=== PATIENT | male | born 1970 | race Caucasian/White ===

== ENCOUNTER 2017-06-27 14:59 | Outpatient (RCR) | payer BC, SELFPAY ==
--- NOTE | 2017-06-27 16:14 | HP.PTEVAL_ITS ---
Patient's Visit Information ADALI CATES is a 46 year old M referred to Physical Therapy by Dionte Venegas with a diagnosis of LUMBAGO WITH SCIATICA. Date of Evaluation: 06/27/17 Physical Therapist: Yesenia Langley - Visit Plan Frequency: 2-3x /Week Duration: 4-6 Weeks Plan: POSTURE CORRECTION/STRENGTHENING, INSTRUCTION IN APPROPRIATE BODY MECHANICS AND ACTIVITY MODIFICATIONS. DLS STARTING WITH A NEUTRAL SPINE PROGRESSING ROM TOLERATED. KAR LE ROM, STRETCHING AND STRENGTHENING. HEP INSTRUCTION. 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 CAN GET HELP AT WORK NEEDED RIGHT NOW BUT NOT TECHNICALLY ON LIGHT DUTY. WORK INVOLVES A LOT OF LEANING INTO A MACHINE BUT NOT A LOT OF HEAVY LIFTING. Disability: NO. Present symptoms: LEFT LOW BACK AND LEFT THIGH. NO NUMBNESS OR TINGLING. Present since: ABOUT 7 WEEKS AGO. Pain Scale: WORST 10/10, LEAST 2/10. Currently: 4 /10. Commenced as a result of: BENDING WHILE HELPING SOMEONE WORK ON THEIR CAR. WAS NOT LIFTING AT THE TIME. Symptoms at onset: LEFT LOW BACK. Worse: SITTING?, LEANING FORWARD, TWISING, LIFTING, SOMETIMES WALKING. Better: LIFTING SELF UP ON A COUNTER. SOMETIMES IT POPS AT THE BASE OF HIS SPINE AND IT FEELS BETTER. CRACKING BACK BY LYING ON BED AND TWISTING LIKE A CHIROPRACTOR WOULD DO. PREDNISONE, PERCOCET, GABAPENTEN HELPED BUT ONLY HAS GABAPENTEN LEFT. Disturbed sleep: NO. Previous history/Previous treatment: CHRONIC LOW BACK PAIN FOR ABOUT 25 YEARS. CHIROPRACTOR. MASSAGE THERAPY. NO PT. NO MARAL. NO SURGERY. FLARE UP JUL 2016 POSSIBLY DUE TO COMPENSATING FOR RIGHT KNEE. HAS HAD ABOUT 4 FLARE UPS SINCE JUL. THIS IS THE WORST ONE. COULD BARELY WALK ABOUT 7 WEEKS AGO. Coughing/sneezing/straining: NEGATIVE. Gait: SOMOETIMES CAUSES DECREASED STRIDE ON THE LEFT. Difficulty initiating urinatin: NO. Accidents: RIGHT KNEE INJURY YEARS AGO - 4 SURGERIES ON THAT KNEE WITH MOST RECENT MAR 2016. Unexplained weight loss: NO. Imaging: X-RAY OF LUMBAR RECENTLY SHOWING DDD. NO MRI. PMH: UNREMARKABLE. Recent major surgery: 4 RIGHT KNEE SURGERIES. RIGHT TKR NOW. OTHER: USES A BACK BRACE AT WORK NEEDED. - Objective Sitting Posture: POOR. Standing Posture: FAIR. Lordosis: REDUCED. Lateral shift: NO. Relevant shift: N/A. Active Correction of posture: WORSE. Other Observations: INDEP GAIT AND INDEP SIT TO STAND. Motor deficit: KAR LE STRENGTH IS 5/5 WITH MMT. Sensory deficit: KAR LE LIGHT TOUCH SENSATION IS INTACT AND SYMMETRICAL. ROM deficit: KAR LE ROM WFL BUT RIGHT KNEE FUNCTION LIMITED DUE TO TKR. Reflexes: LEFT QUAD AND KAR ACHILLES DTR'S 2/2. Dural Signs: NEGATIVE RIGHT AND POSITIVE LLE. Lumbar mvmt loss: flex - MIN. ext - GERALDO. R SG -MIN. L SG - GERALDO. Core strength: POOR. Palpation: NO ACUTE PALPABLE TENDERNESS. - Goals Goal 1:: DECREASE C/O BACK AND LE SX'S Goal Time Frame: 4-6 Weeks Goal 2:: IMPROVE STANDING, WALKING, REACHING, BENDING, LIFTING, SITTING, AND WORK FUNCTION Goal Time Frame: 4-6 Weeks Goal 3:: INSTRUCT IN PROPHYLAXIS Goal Time Frame: 4-6 Weeks - Rehabilitation Potential Rehabilitation Potential: Good - Anticipated Interventions Patient/Client Instruction: Educate patient on: Condition, Plan of Care, Risk Factors, Benefits of Fitness Program For the Purpose of:: To improve self management Therapeutic Exercise to Include: Strength training, Body mechanics, Postural training, Flexibilty training, Dynamic Lumbar Stabilization For the Purpose of:: To improve ability of physical actions for home/community/ work/leisure Cryotherapy (ice pack, ice massage): Yes Thermo therapy (hot pack): Yes Ultrasound (thermal/non thermal): Yes For the Purpose of:: To decrease pain, To decrease swelling/inflammation Thank you for the opportunity to evaluate your patient. For Medicare and Medicare HMO plans, please review the plan of care and approve it. It will need to be FAXED BACK to us at [phone] for Medicare purposes. Please let me know if there are questions or concerns regarding this plan of care. Physician Signature: Date:
== END 2017-06-27 15:30 | disposition home or self-care (01) ==
LOC: PT 14:59
PROVIDERS: Family Provider Family Medicine; PCP Family Medicine; Visit Provider Family Medicine
DX: M54.40 Lumbago with sciatica, unspecified side (principal)
CPT/HCPCS: 97162; 97530

== ENCOUNTER → 2017-12-19 14:35 | Outpatient (CLI) | payer BC, SELFPAY ==
--- NOTE | 2017-12-19 14:35 | DT_ITS ---
This patient was seen during an EMR downtime December 17, 2017 - December 24, 2017. This patient may have a combination of paper and electronic documentation or all paper documentation. All documentation is viewable within the e-chart portion of [facility] for each patient visit.
[2017-12-23 15:38] LABS: Anion Gap 8 (5-15); BUN 14 mg/dL (7-18); BUN/Creat Ratio 13.6 RATIO (10-20); Calcium,Total 8.9 mg/dL (8.5-10.1); Chloride 103 mmol/L (98-107); Creatinine, Serum 1.03 mg/dL (0.70-1.30); EST Glomerular Filtration Rate 83 mL/min (>60); Est Glom Filt Rate - Afr Amer 101 mL/min (>60); Glucose 77 mg/dL (74-106); Potassium 3.8 mmol/L (3.5-5.1); Sodium Level 138 mmol/L (136-145); Thyroid Stim Hormone (TSH) 2.14 uIU/mL (0.358-3.74)
[2017-12-23 15:39] LABS: T4 Free Direct 1.18 ng/dL (0.76-1.46)
== END ==
PROVIDERS: Family Provider Family Medicine; PCP Family Medicine; Visit Provider Family Medicine
DX: E03.9 Hypothyroidism, unspecified (principal); E66.9 Obesity, unspecified
CPT/HCPCS: 36415; 80048; 84439; 84443

== ENCOUNTER → 2017-12-24 08:24 | Outpatient (CLI) | payer BC, SELFPAY ==
--- NOTE | 2017-12-24 08:24 | DT_ITS ---
This patient was seen during an EMR downtime December 17, 2017 - December 24, 2017. This patient may have a combination of paper and electronic documentation or all paper documentation. All documentation is viewable within the e-chart portion of [facility] for each patient visit.
[2017-12-24 12:54] LABS: Cholesterol 168 mg/dL (200); High Density Lipoprotein 45 mg/dL; Triglycerides 127 mg/dL; Very Low Density Lipoprotein 25 mg/dL (5-40)
== END ==
PROVIDERS: Family Provider Family Medicine; PCP Family Medicine; Visit Provider Family Medicine
DX: E03.9 Hypothyroidism, unspecified (principal); E66.9 Obesity, unspecified
CPT/HCPCS: 36415; 80061

== ENCOUNTER → 2018-08-15 15:11 | Outpatient (CLI) | payer BC, SELFPAY ==
[2017-06-05 09:51] VITALS: BMI 31.1
[2018-08-15 17:33] LABS: Hematocrit 43.2 % (40-54); Hemoglobin 14.5 g/dl (13.0-16.5); Mean Corp Hgb Conc 33.6 g/gl (32-36); Mean Corpuscular Hgb 30.7 pg (27.0-32.0); Mean Corpuscular Volume 91.3 fL (80-94); Mean Platelet Vol. 11.3 fl (6.2-12.0); Platelet Count 182 K/mm3 (150-450); RBC Distribution Width CV 12.9 % (11.6-14.6); RBC Distribution Width SD 42.5 fl (35.1-43.9); Red Blood Count 4.73 M/mm3 (4.6-6.2); White Blood Count 6.4 K/mm3 (4.4-11.0)
[2018-08-15 17:35] LABS: Scan Indicated on CBC? Y/N NO
[2018-08-15 18:11] LABS: Anion Gap 9 (5-15); BUN 15 mg/dL (7-18); BUN/Creat Ratio 13.6 RATIO (10-20); Calcium,Total 8.6 mg/dL (8.5-10.1); Chloride 104 mmol/L (98-107); EST Glomerular Filtration Rate 77 mL/min (>60); Est Glom Filt Rate - Afr Amer 93 mL/min (>60); Glucose 86 mg/dL (74-106); Sodium Level 140 mmol/L (136-145); T4 Free Direct 1.07 ng/dL (0.76-1.46); Thyroid Stim Hormone (TSH) 2.12 uIU/mL (0.358-3.74)
== END ==
PROVIDERS: Family Provider Family Medicine; PCP Family Medicine; Visit Provider Family Medicine
DX: E03.9 Hypothyroidism, unspecified (principal); F32.9 Major depressive disorder, single episode, unspecified; Z13.21 Encounter for screening for nutritional disorder
CPT/HCPCS: 36415; 80048; 82306; 84439; 84443; 85027

== ENCOUNTER 2018-09-23 05:53 | Day surgery (SDC) | payer BC, SELFPAY ==
--- NOTE | 2018-09-20 14:24 | PCM.HP.BLA ---
History and Physical Date of Admission: 09/23/18 HISTORY AND PHYSICAL ? Baron Roque 1970 ? ? REFERRING PHYSICIAN:???Dr. Gimenez ? CHIEF COMPLAINT: ??Consult (Consult Anal warts) ? HPI: The patient is a 47 year old male with a complaint of?penile and anal condyloma. ?The patient has a past known history of penile condyloma. ?He had these excised approximately 3 years previously. ?He now notes further reaccumulation of both penile and anal condyloma. ?He was seen by Dr. Jason Gimenez?was planning to perform excision of penile condyloma. ?He would like to schedule a combined procedure psych address his perianal condylomatous same setting. ? Patient Notes a history of multiple sexual partners over his lifetime. ?He denies anal sex. ?He notes a history of oral sex. ?He notes no oropharyngeal abnormalities. ?He does not know if his condylomata were serotyped ?for HPV in the past. ? ? The patient is being seen by me today at the request of ?for my opinion and advice regarding anal condyloma.? ? PAST?MEDICAL?HISTORY PAST MEDICAL HISTORY Diagnosis Date ? Hypertension ? ? Hypothyroid ? ? ? PAST?SURGICAL?HISTORY PAST SURGICAL HISTORY Procedure Laterality Date ? KNEE SCOPE,DIAGNOSTIC ? 11/21/2011 ? Arthroscopy, knee ? PAST SURGICAL HISTORY OF ? ? ? wisdom teeth removal ? TOTAL KNEE REPLACEMENT Right 03/2016 ? ? CURRENT?MEDICATIONS ? Current Outpatient Prescriptions: escitalopram oxalate (LEXAPRO) 10 mg tablet ? sildenafil (REVATIO) 20 mg tablet take 1 to 2 tablets by mouth 1 HOUR BEFORE INTERCOURSE Magnesium Oxide 500 mg cap Take by mouth. cholecalciferol (VITAMIN D-3) 5,000 unit tab Take 5,000 Units by mouth once daily. Ascorbic Acid (VITAMIN C) 1,000 mg TbER Take ?by mouth. OTC NUTRITIONAL SUPPLEMENT Take ?by mouth. Vitamin B daily levothyroxine (SYNTHROID) 50 mcg ORAL tablet Take 88 mcg by mouth once daily. Take on empty stomach. For Thyroid. cyclobenzaprine (FLEXERIL) 10 mg ORAL tablet Take 1 tablet by mouth every 8 hours as needed for Muscle Spasm. traMADOL 50 mg tablet Take 1-2 tablets by mouth every 6 hours as needed. (Patient not taking: Reported on 02/07/2017) ? No current facility-administered medications for this visit.? ? ALLERGIES:?Patient has no known allergies. ? PERSONAL HISTORY:? SOCIAL?HISTORY Social History ??Marital status: Single ?Spouse name: ?Years of education: ?Number of children: ? Social History Main Topics ??Smoking status: Never Smoker ?Smokeless tobacco: Never Used ?Alcohol use: Yes ?Comment: 4-5 beers a day ??Drug use: No ? FAMILY HISTORY:? FAMILY?HISTORY No family history on file. ? REVIEW OF SYMPTOMS: ??The review of systems data was entered by the nurse and reviewed by me ? Nursing Notes: Ever Medina LPN ?08/27/2018 ?4:36 PM ?Signed REVIEW OF SYSTEMS: ?General:???The patient denies fatigue, denies weight loss, denies weight gain, denies feeling hot, and denies feelings of cold. ?Eyes: ?The patient denies glaucoma, denies eye injury/surgery, does not wear glasses or contacts. ?Ear/Nose/Throat: ?The patient denies allergies, denies hayfever, NOTES ear infections, and denies bloody noses. ?Cardiovascular: ?The patient denies chest pain, denies heart disease, denies high blood pressure,denies cardiac stent, denies prior heart attack, denies irregular heart beat, denies high cholesterol, ?denies poor circulation, denies heart failure, other cardiac issues, denies claudication, denies cold feet, denies peripheral arterial stent. ?Respiratory: ?The patient denies tuberculosis, NOTES pneumonia, denies frequent cough, denies pulmonary embolism, denies shortness of breath, and denies coughing up blood. ?Gastrointestinal: ?The patient denies difficulty swallowing, denies acid reflux, denies ulcers, denies vomiting, denies jaundice/hepatitis, denies gallbladder problems, denies black or tarry stools, denies hemorrhoids, denies bleeding from rectum, denies diverticulitis, denies constipation, NOTES diarrhea, denies loss of stool control, and denies hernias. ?Kidney/Bladder: ?The patient denies kidney stones, denies urine infections, and denies bloody urine. ?Skin: ?The patient denies a history of skin cancer, denies bleeding/changing moles, and denies a history of skin rash. ?Neurologic: ?The patient denies a history of epilepsy/convulsions, denies headaches, denies head/spinal injuries, and denies stroke/TIA. ?Psychiatric: ?The patient denies psychiatric medications, NOTES depression, and denies voices, denies substance abuse. ?Endocrine: ?The patient NOTES thyroid disorders, denies diabetes, and denies hormonal problems. ?Hematologic: ?The patient denies a history of bruising, denies bleeding, and denies anemia, denies blood clots. ?Infections: ?The patient denies a history of measles and mumps, denies rheumatic fever, and NOTES sexually transmitted diseases. ?Musculoskeletal: ?The patient denies back pain/injury, denies back problems, denies sciatica, NOTES knee/foot trouble, NOTES arthritis, or NOTES gout. ? ? When was patient's last Mammogram screening? N/A ? ?Last Colonoscopy: ?N/A ? Ever Medina LPN ? PHYSICAL EXAMINATION: ? General: ?The patient is 47 year old male, well nourished, well hydrated in no acute distress. ?The patient is oriented to time, place, and person. ? VITALS:?Blood pressure 138/84, pulse 71, temperature 36.3 ?C (97.3 ?F), temperature source Temporal Artery, height 190.5 cm (6' 3), weight 113.9 kg (251 lb), SpO2 100 %. ? HEENT: ?Normal cephalic, ataumatic, pupils are equally round, sclera are anicteric, mucous membranes are moist, oropharynx is clear. ?Neck has no masses, asymmetry or lymphadenopathy. ?Thyroid is unremarkable. ? Respiratory: ?Clear to auscultation and percussion. ?Normal respiratory excursion and pattern. ? Cardiac: ?Examination is regular rate and rhythm. ? Abdominal exam: ?Soft, nontender, ?with no palpable masses. ?No hepatosplenomegaly. ?No palpable hernias. ? Rectal exam:?Multiple smaller nodule and area of coalesced nodules consistent with perianal condyloma. ?Anorectal exam deferred ? Extremities: ?no clubbing, cyanosis or edema. ?No adenopathy. ? Other: ? ? LABORATORY VALUES: As Noted ? RADIOLOGIC STUDIES: ?As Noted ? Assessment ? IMPRESSION:?Penile and perianal condyloma ? PLAN:???I plan to perform examination under anesthesia with excision and fulguration of anal condyloma.??The planned surgical procedure was discussed extensively with the patient. The risks, benefits and anticipated outcomes of the procedure, the risks and benefits of the alternatives to the procedure, and the roles and tasks of the personnel to be involved, were discussed with the patient. ?My staff has also explained the procedure in understandable terms and the patient was given the option to take printed material concerning the planned procedure. ?The patient had the opportunity to ask questions concerning the planned procedure. ?The patient freely consents to the planned procedure. ? Anticipated Surgical Procedure/ CPT Code:?Surgical excision of lesions/condyloma - Anus - 62390 ? Anticipated Anesthetic:?General ? Patient weight:??Blood pressure 138/84, pulse 71, temperature 36.3 ?C (97.3 ?F), temperature source Temporal Artery, height 190.5 cm (6' 3), weight 113.9 kg (251 lb), SpO2 100 %.?BMI: ?Body mass index is 31.37 kg/m?. ? Planned antibiotic:?clindamycin 900mg IVPB agricultural produce commission agent to OR ? SCDs needed -?Yes ? Certified Nurse Needed -?No ?? ? Diagnoses:?(A63.0) Anal condyloma ?(primary encounter diagnosis) ? My findings have been communicated to Dr.?Ammy?via shared medical record. ?This note will be forwarded to Dr. Dionte Venegas MD. ? Return to Clinic: The patient is instructed to follow-up with me?1 week post operatively. ? This note was partially generated using [employer] voice recognition system, and there may be some incorrect words, spellings, and punctuation that were not noted in checking the note before saving.? David Ayoub MD
[2018-09-23 06:24] VITALS: BP 134/83; PULSE 65; RESP 16; TEMP 36.6; O2SAT 99; BMI 30.3
--- NOTE | 2018-09-23 07:30 | MISC_PTH ---
PATIENT: ADALI CATES LOC: [facility] [place] U#:[id number] AGE/SX: 47/M ROOM: RE09/23/[address]: Dr. Micah Gimenez MD : 1970 BED: DIS: 09/23/2018 SPEC #: [id number] RECD: 09/23/18 13:47 STATUS: CHRISTINA LILO #: [id number] ASHVIN: 09/23/18 07:[address]: Micah Gimenez DEPT: SURGICAL PATHOLOGY RECD BY: Aliyah Gresham ENTERED: 09/23/18 14:07 SP [facility] O[facility] DR: Dr. Dionte Venegas MD Tissues: Perianal tissue Procedures: Surgery Specimen Level IV HEADER OPERATION: Destruction penile lesions, CO2 laser PRE-OP DIAGNOSIS: Penile condyloma TISSUE SUBMITTED: Perianal condyloma MICROSCOPIC DIAGNOSIS Perianal condyloma, biopsy: Consistent with condyloma. SJ:mauricio 09/23/18 MICROSCOPIC DESCRIPTION Slides are reviewed. GROSS DESCRIPTION Received in fixative is one container labeled with the patient's name and designated perianal condyloma. The specimen consists of three irregular fragments of light crocker soft tissue that in aggregate measure 1.5 x 0.6 x 0.2 cm. The specimen is totally submitted in one cassette. / AM:mauricio 09/23/18 TC:5 CPT: 81505 ADDENDUM ADDENDUM ADDENDUM ADDENDUM ADDENDUM ADDENDUM ADDENDUM ADDENDUM ADDENDUM ADDENDUM 10/21/2018 10:24 ADDENDUM 10/21/2018 10:24 ADDENDUM 10/21/2018 10:24 ADDENDUM 10/21/2018 10:24 ADDENDUM 10/21/2018 10:24 REPORT FROM [facility] TEST: HPV ARI low/high subtypes HPV 6/11 Positive for low risk HPV 6/11 HPV 16/18 Negative for high risk HPV 16/18 HPV 31/33 Negative for high risk HPV 31/33 Please see complete report in e-chart or EMR for further details
[2018-09-23] MEDS: ACETIC ACID 1,000 ML IRRIG.SOLN IR (07:53)
--- NOTE | 2018-09-23 07:57 | PCM.OPRPT ---
Report of Operation Date of Procedure: 09/23/18 Pre-Operative Diagnosis: Penile condylomas Post-Operative Diagnosis: Same multiple Surgery/Procedure Performed:: CO2 laser destruction of multiple penile condyloma is more than 20 Description of Surgical Findings:: 47-year-old male has recurrence of penile condylomas initial condylomas were lasered or destroyed somewhere else he comes back in the office my office for consultation he also has anal condylomas because of this reviewed combined case with general surgery to proceed with my partner first and laser to destroy all the penile condylomas first and then general surgery is going to take care of the anal condylomas. Patient underwent general anesthesia he was placed supine on the table the penis and testicles are prepped and draped in usual sterile fashion I shaved the patient as well. He had multiple condylomas along the shaft of the penis none on the glands some of the scrotum and some in the prepubic fat area. We then used a CO2 laser with a setting of 7 and took about 20 minutes to laser all the visible condylomas to use acetic acid identifies many condylomas as possible at the end of the procedure I had lasered all the condylomas were used suction to suction all the smoke out with a high vacuum suction device. After destroying of the condylomas and the case was turned over to general surgery he was going to proceed with a destruction of the anal condylomas she will follow-up in my office in a few weeks for checkup. Type of Anesthesia:: General - Admit VTE Documentation VTE Present on Admission: No
--- NOTE | 2018-09-23 08:00 | DCINST_ITS ---
Discharge Diet: Light diet - advance as tolerated Discharge Activity: Return to Normal Activity Suture Line Care: Avoid Pulling/Pushing, Avoid Pinching/Bending Allergies/Adverse Reactions: Allergies No Known Allergies Allergy (Verified 09/16/18 13:05) Medications to take at Discharge Ascorbic Acid [Vitamin C] 500 mg PO DAILY 04/03/16 Cholecalciferol (Vitamin D3) [Vitamin D3] 5,000 unit PO DAILY 04/03/16 Cyanocobalamin (Vitamin B-12) [Vitamin B-12] 5,000 mcg PO DAILY 04/03/16 Levothyroxine [Synthroid] 88 mcg PO DAILY 04/03/16 Magnesium 500 mg PO DAILY 04/03/16 Multivitamin 1 tab PO DAILY 04/03/16 Bupropion HCl [Bupropion Xl] 150 mg PO DAILY 09/16/18 Escitalopram Oxalate [Lexapro] 10 mg PO DAILY 09/16/18 Naproxen Sodium [Aleve] 220 mg PO PRN PRN 09/16/18 Primary Care Physician: Jagdish Venegas MD [Primary Care Provider] - Test Results: Test results from this visit will be discussed in further detail at your follow- up appointment, if applicable. Please Follow Up With: Micah Gimenez MD When: in 2 weeks, please call to make an appointment.
[2018-09-23] MEDS: Bupivacaine Mpf 0.5% 30 ML VIAL (08:25)
[2018-09-23 08:34] VITALS: BP 133/84; BP 134/83; PULSE 72; RESP 16; TEMP 36.1; O2SAT 93
--- NOTE | 2018-09-23 08:36 | PCM.OPRPT ---
Report of Operation Date of Procedure: 09/23/18 Pre-Operative Diagnosis: anal and penile condyloma Post-Operative Diagnosis: anal and penile condyloma Surgery/Procedure Performed:: Examination under anesthesia, excision and fulgration of anal condyloma shift production supervisor: None Type of Anesthesia:: General Anesthesiologist: Gregory Jackson ASA2 Specimen's removed: anal condyloma Estimated Blood Loss (mL): 25 Fluids Replaced: 800 Description of Procedure: The patient was brought to the operating suite. Sign in was performed verifying patient, site, procedure, position, and DVT prophylaxis with SCDs. Clindamycin 900mg. performed his portion of the procedure. Following induction of general anesthetic. The patient was positioned in the modified lithotomy The patient?s perineal area was then prepped and draped in the usual fashion. Timeout was performed verifying patient, site, procedure, and position. External examination demonstrated multiple condylomatous nodules at the anal verge and perianal skin. Digital rectal exam demonstrated nodules in the anal canal. Anoscopy was performed which multiple condylomatous nodules. Acetic acid highlighted these nodules. Larger plaques were sent for pathology. The remaining were excised or fulgrated A dressing was applied and mesh pants were used to hold the dressing in place. The patient was extubated and brought to recovery room in stable condition. - Admit VTE Documentation VTE Present on Admission: No VTE Mechan Device Prophylaxis: SCD's VTE Pharm Prophylaxis ordered?: No
[2018-09-23 08:45] VITALS: BP 119/72; BP 134/83; PULSE 69; RESP 18; O2SAT 97
[2018-09-23 09:01] VITALS: BP 122/76; BP 134/83; PULSE 72; RESP 18; TEMP 36.3; O2SAT 94
[2018-09-23 09:30] VITALS: BP 134/83
[2018-09-23 09:42] VITALS: BP 134/83
[2018-10-22 13:18] LABS: Miscellaneous Lab Procedure SEE PATH
== END 2018-09-23 09:43 | disposition home or self-care (01) ==
LOC: SDC 05:55 → AC 05:58
PROVIDERS: Surgery; Family Provider Family Medicine; PCP Family Medicine; Referring Provider Urology; Visit Provider Urology
PROC: (CPT 54065; principal; 2018-09-23 07:20)
PROC: (CPT 46922; 2018-09-23 07:20)
DX: A63.0 Anogenital (venereal) warts (principal); I10 Essential (primary) hypertension; E03.9 Hypothyroidism, unspecified; F32.9 Major depressive disorder, single episode, unspecified; F41.9 Anxiety disorder, unspecified; Z79.899 Other long term (current) drug therapy; Z96.651 Presence of right artificial knee joint
CPT/HCPCS: 46922; 54065; 88305; J7120; J2405

== ENCOUNTER 2019-06-04 05:29 | Day surgery (SDC) | payer BC, SELFPAY ==
--- NOTE | 2019-06-03 19:01 | PCM.HP.BLA ---
History and Physical Date of Admission: 06/04/19 HISTORY AND PHYSICAL ? Baron Roque 1970 ? REFERRING PHYSICIAN: ??MD Marquez ? CHIEF COMPLAINT: ??Post Op ? HPI:Baron is a patient I am following for anal and penile condyloma. ?? ? I performed an examination under anesthesia and excision and fulguration of anal condyloma on September 23, 2018. ??The patient currently notes he had an episode of gastroenteritis and had multiple loose stools which gave him significant perianal pain over the weekend but currently is improving. ?his appetite has been good. ?he denies fever, chills or abdominal pain. ?he does note some improving incisional discomfort. ? The patient's HPV serotypes returned as low risk. ?He now is noticing a few recurrent nodules in his perianal area. ? He is noted recurrent condyloma on his penis. ?He is planning to have penile condyloma excised by Dr. Gimenez ? Baron notes?no history of colon complaints. ? The patient??notes no history of upper GI complaints.?? ? Baron?has not?undergone prior endoscopy. ?He wishes to undergo screening colonoscopy. ? The patient is being seen by me today at the request of Dr.?Dionte Venegas MD?for my opinion and advice regarding follow-up anal condyloma and desire for screening colonoscopy.? ? ? PAST MEDICAL HISTORY PAST MEDICAL HISTORY Diagnosis Date ? Hypertension ? ? Hypothyroid ? PAST SURGICAL HISTORY PAST SURGICAL HISTORY Procedure Laterality Date ? EXAM UNDER ANESTHESIA ? 09/23/2018 ? excision and fulgration of anal condyloma ? KNEE SCOPE,DIAGNOSTIC ? 11/21/2011 ? Arthroscopy, knee ? PAST SURGICAL HISTORY OF ? ? ? wisdom teeth removal ? TOTAL KNEE REPLACEMENT Right 03/2016 ? Current Outpatient Medications: buPROPion XL (WELLBUTRIN XL) 300 mg 24 hr tablet ? escitalopram oxalate (LEXAPRO) 10 mg tablet ? sildenafil (REVATIO) 20 mg tablet take 1 to 2 tablets by mouth 1 HOUR BEFORE INTERCOURSE Magnesium Oxide 500 mg cap Take by mouth. cholecalciferol (VITAMIN D-3) 5,000 unit tab Take 5,000 Units by mouth once daily. traMADOL 50 mg tablet Take 1-2 tablets by mouth every 6 hours as needed. (Patient not taking: Reported on 02/07/2017) Ascorbic Acid (VITAMIN C) 1,000 mg TbER Take ?by mouth. OTC NUTRITIONAL SUPPLEMENT Take ?by mouth. Vitamin B daily levothyroxine (SYNTHROID) 50 mcg ORAL tablet Take 88 mcg by mouth once daily. Take on empty stomach. For Thyroid. cyclobenzaprine (FLEXERIL) 10 mg ORAL tablet Take 1 tablet by mouth every 8 hours as needed for Muscle Spasm. ? No current facility-administered medications for this visit.? ? ALLERGIES:?Patient has no known allergies. ? PERSONAL HISTORY:?Social History ??Socioeconomic History ?Marital status: Single ?Spouse name: Not on file ?Number of children: Not on file ?Years of education: Not on file ?Highest education level: Not on file ??Occupational History ?Not on file ??Social Needs ?Financial resource strain: Not on file ?Food insecurity: ?Worry: Not on file ?Inability: Not on file ?Transportation needs: ?Medical: Not on file ?Non-medical: Not on file ??Tobacco Use ?Smoking status: Never Smoker ?Smokeless tobacco: Never Used ??Substance and Sexual Activity ?Alcohol use: Yes ?Comment: 4-5 beers a day ?Drug use: No ?Sexual activity: Not on file ??Lifestyle ?Physical activity: ?Days per week: Not on file ?Minutes per session: Not on file ?Stress: Not on file ??Relationships ?Social connections: ?Talks on phone: Not on file ?Gets together: Not on file ?Attends hindu service: Not on file ?Active member of club or organization: Not on file ?Attends meetings of clubs or organizations: Not on file ?Relationship status: Not on file ?Intimate partner violence: ?Fear of current or ex partner: Not on file ?Emotionally abused: Not on file ?Physically abused: Not on file ?Forced sexual activity: Not on file ??Other Topics ?Concerns: ?Not on file ??Social History Narrative ?Not on file ?? ? FAMILY HISTORY:? FAMILY HISTORY No family history on file. ? REVIEW OF SYMPTOMS: ??The review of systems data was entered by the nurse and reviewed by me ? There are no exam notes on file for this visit. ? ? PHYSICAL EXAMINATION: ? General: ?The patient is 48 year old male, well nourished, well hydrated in no acute distress. ?The patient is oriented to time, place, and person. ? VITALS:?Blood pressure 150/78, pulse 74, temperature 36.2 ?C (97.2 ?F), temperature source Temporal Artery, resp. rate 14, weight 112.5 kg (248 lb), SpO2 97 %.?Body mass index is 31 kg/m?.? ? HEENT: ?Normal cephalic, ataumatic, pupils are equally round, sclera are anicteric, mucous membranes are moist, oropharynx is clear. ?Neck has no masses, asymmetry or lymphadenopathy. ?Thyroid is unremarkable. ? Respiratory: ?Clear to auscultation and percussion. ?Normal respiratory excursion and pattern. ? Cardiac: ?Examination is regular rate and rhythm. ? Abdominal exam: ?Soft, nontender, ?with no palpable masses. ?No hepatosplenomegaly. ?No palpable hernias. ? Rectal exam:perianal condyloma ? Extremities: ?no clubbing, cyanosis or edema. ?No adenopathy. ? Other: ? LABORATORY VALUES: As Noted ? RADIOLOGIC STUDIES: ?As Noted ? Assessment ? IMPRESSION:?Condyloma, screening colonoscopy ? PLAN: ?I plan to perform lower?endoscopy. ??We discussed the risks and benefits of the planned endoscopy. ?I have informed the patient that complications can occur including failure to complete the endoscopy and perforation. ?The patient had the opportunity to ask questions concerning the planned endoscopy. ?My staff has also explained the procedure to the patient in understandable terms and has given the patient printed material concerning the procedure. ?The patient freely consents to surgery. ? I plan to use golytely bowel preparation for endoscopy ? Anticipated Surgical Procedure/ CPT Code:?Colonoscopy with or without biopsies based on clinical findings,?Surgical excision of lesions/condyloma - Anus - 66688 ? Anticipated Anesthetic:?General ? Patient weight:??Blood pressure 150/78, pulse 74, temperature 36.2 ?C (97.2 ?F), temperature source Temporal Artery, resp. rate 14, weight 112.5 kg (248 lb), SpO2 97 %.?BMI: ?Body mass index is 31 kg/m?. ? Planned antibiotic:?clindamycin 900mg IVPB acute care nurse practitioner to OR ? SCDs needed -?Yes ? Obstetrics Scrub Nurse Needed -?No ? Diagnoses:?(A63.0) Anal condyloma ?(primary encounter diagnosis) (Z12.11) Special screening for malignant neoplasm of colon ? A letter was sent to Dr.?Dionte Venegas MD?indicating the above finding for this patient. ?? Return to Clinic: The patient is instructed to follow-up with me?1 week post operatively. ? David Ayoub MD
--- NOTE | 2019-06-04 05:37 | EKG12_ITS ---
Test Reason : PREOP Blood Pressure : / mmHG Vent. Rate : 065 BPM Atrial Rate : 065 BPM P-R Int : 182 ms QRS Dur : 100 ms QT Int : 396 ms P-R-T Axes : 068 021 036 degrees QTc Int : 411 ms Normal sinus rhythm Normal ECG No previous ECGs available Confirmed by CALLUM BEYER, ALESHA ([id number]), associate entertainment editor DEBRA HARVEY ([id number]) on 06/09/2019 10:17:41 AM Referred By: David Ayoub Confirmed By:ALESHA NOLEN MD
[2019-06-04 05:53] VITALS: BP 135/83; PULSE 64; RESP 16; TEMP 36.6; O2SAT 97; BMI 30.3
[2019-06-04] MEDS: Lactated Ringers 1,000 ML 100 ML IV ×2 (06:10→08:25)
--- NOTE | 2019-06-04 06:30 | COLBX_PTH ---
PATIENT: ADALI CATES LOC: EN U#:[id number] AGE/SX: 48/M ROOM: RE06/04/[address]: Dr. David Ayoub MD : 1970 BED: DIS: 06/04/2019 SPEC #: [id number] RECD: 06/04/19 09:44 STATUS: CHRISTINA REMine #: [id number] ASHVIN: 06/04/19 06:[address]: David Ayoub DEPT: SURGICAL PATHOLOGY RECD BY: Janak Berger ENTERED: 06/04/19 12:20 SP TYPE: COLON BX OTHR DR: MD Dr. Micah Viramontes MD Tissues: Rectum, NOS Procedures: Surgery Specimen Level IV HEADER OPERATION: Colonoscopy (MAC) PRE-OP DIAGNOSIS: Screening TISSUE SUBMITTED: Biopsy of low rectum MICROSCOPIC DIAGNOSIS Biopsy of low rectum: Polypoid fragment of benign colonic mucosa with no significant pathologic change. AM:mauricio 06/05/19 MICROSCOPIC DESCRIPTION Slides are reviewed. GROSS DESCRIPTION Received in fixative is one container labeled with the patient's name and designated rectum. The specimen consists of one irregular fragment of light crocker soft tissue that measures 0.5 x 0.2 x 0.1 cm. The specimen is totally submitted in one cassette. / AM:mauricio 06/04/19 TC:5 CPT: 06657
[2019-06-04] MEDS: Cefazolin 2 GM in 0.9% Normal Saline 100 ML IV (06:50)
[2019-06-04 06:55] LABS: Thyroid Stim Hormone (TSH) 1.71 uIU/mL (0.358-3.74)
--- NOTE | 2019-06-04 07:15 | COLBX_PTH ---
PATIENT: ADALI CATES LOC: EN U#:[id number] AGE/SX: 48/M ROOM: RE06/04/[address]: Dr. David Ayoub MD : 1970 BED: DIS: 06/04/2019 SPEC #: [id number] RECD: 06/04/19 08:33 STATUS: CHRISTINA REMine #: [id number] ASHVIN: 06/04/19 07:[address]: David Ayoub DEPT: SURGICAL PATHOLOGY RECD BY: Janak Berger ENTERED: 06/04/19 12:01 SP TYPE: COLON BX OTHR DR: MD Dr. Micah Viramontes MD Tissues: Anal region Procedures: Surgery Specimen Level IV HEADER OPERATION: Excision anal condyloma fulguration PRE-OP DIAGNOSIS: Anal condyloma, anogenital warts TISSUE SUBMITTED: Anal condyloma MICROSCOPIC DIAGNOSIS Anal condyloma, biopsy: Consistent with fragments of condyloma. AM:mauricio 06/05/19 COMMENT Case has been reviewed in consultation with Dr. Ceron who concurs with the above diagnosis. IDC:SJ MICROSCOPIC DESCRIPTION Slides are reviewed. GROSS DESCRIPTION Received in fixative is one container labeled with the patient's name and designated anal condyloma. The specimen consists of multiple irregular fragments of light crocker soft tissue that in aggregate measure 0.5 x 0.3 x 0.1 cm. The specimen is totally submitted in one cassette. / AM:mauricio 06/04/19 TC:5 CPT: 20323
[2019-06-04] MEDS: Bupivacaine Mpf 0.5% 30 ML VIAL (07:47)
[2019-06-04] MEDS: Dibucaine 30 GM Tube 1 APPLIC (07:48)
--- NOTE | 2019-06-04 08:00 | PCM.OPRPT ---
Report of Operation Date of Procedure: 06/04/19 Pre-Operative Diagnosis: Penile condylomas multiple more than 3 Post-Operative Diagnosis: Same Surgery/Procedure Performed:: Destruction of penile condylomas using CO2 laser Description of Surgical Findings:: 48-year-old male who has multiple condylomatous he is finished with general surgery for the treatment of the anal condylomas I come into the operating room penis was prepped and draped in usual sterile fashion we shaved the penis and scrotum to do a close examination. We then used acetic acid to identify all the condylomas we then used the CO2 laser set on energy of 3 and we lasered the condylomas there was about 5-6 small condylomas in the dorsal aspect of the penis and 3 or 4 small condylomas in the ventral aspect the penis within very close inspection of the rest of the penis and the scrotum and no other condylomas were identified. No specimen was obtained all the condylomas were lasered by the CO2 laser patient tolerated procedure well and is currently being awakened from anesthesia. Type of Anesthesia:: General Drains: none - Admit VTE Documentation VTE Present on Admission: No VTE Mechan Device Prophylaxis: SCD's
--- NOTE | 2019-06-04 08:06 | OP.PCM_ITS ---
Report of Operation Date of Procedure: 06/04/19 Pre-Operative Diagnosis: anal and penile condyloma, need for screening col onoscopy Post-Operative Diagnosis: anal and penile condyloma, need for screening colonoscopy Surgery/Procedure Performed:: colonoscopy with biopsy, excision and fulguration anal condyloma demurrage clerk: None Type of Anesthesia:: General Anesthesiologist: Jamal Julien - ASA2 Specimen's removed: anal condyloma Estimated Blood Loss (mL): 5 Fluids Replaced: 1600 Description of Procedure: The patient was brought to the operating suite. Sign in was performed verifying patient, site, procedure, position, and DVT prophylaxis with SCDs. Clindamycin 900mg was given. Following induction of general anesthetic. The patient was placed in modified lithotomy position. Prior to examination under anesthesia colonoscopy was performed under separate dictation. The p atient?s perineal area was then prepped and draped in the usual fashion. Timeout was performed verifying patient, site, procedure, and position. External examination demonstrated multiple condylomatous nodules at the anal verge and perianal skin. Digital rectal exam demonstrated nodules in the anal canal. Anoscopy was performed which multiple condylomatous nodules. Acetic acid highlighted these nodules. Larger plaques were sent for pathology. The remaining were excised or fulgurated. A dressing was applied and mesh pants were used to hold the dressing in place. The patient was extubated and brought to recovery room in stable condition.
--- NOTE | 2019-06-04 08:12 | DCINST_ITS ---
Discharge Diet: No Restrictions Discharge Activity: Return to Normal Activity, May Not Drive - while taking narcotic pain medications. Additional Activity Instructions:: Do not drive or work with heavy equipment or sign legal documents for 24 hours. Be aware that pain medications may cause nausea. You should typically eat light foods as you take your pain medications. Pain medications may also cause constipation, if you have difficulty with this please discuss with your doctor. dibucaine to external anal area as needed. sitz baths twice a day and after bowel movements Additional Dressing/Incision Instructions:: Leave the operative bandage on for 2 days. If a local anesthetic plug was placed in the anal area, try not to expel for 24-[address] dibucaine ointment on the perianal area as needed. Sitz baths twice daily and after bowel movements. Allergies/Adverse Reactions: Allergies No Known Allergies Allergy (Verified 06/04/19 05:53) Medications to take at Discharge Ascorbic Acid [Vitamin C] 500 mg PO DAILY 04/03/16 Cholecalciferol (Vitamin D3) [Vitamin D3] 5,000 unit PO DAILY 04/03/16 Cyanocobalamin (Vitamin B-12) [Vitamin B-12] 5,000 mcg PO DAILY 04/03/16 Levothyroxine [Synthroid] 88 mcg PO DAILY 04/03/16 Magnesium 500 mg PO DAILY 04/03/16 Multivitamin 1 tab PO DAILY 04/03/16 Bupropion HCl [Bupropion Xl] 300 mg PO DAILY 09/16/18 Escitalopram Oxalate [Lexapro] 10 mg PO DAILY 09/16/18 Naproxen Sodium [Aleve] 220 mg PO PRN PRN 09/16/18 Dibucaine 1 applic TOPICAL PRN PRN #2 tube 06/04/19 Hydrocodone Bitart/Apap 5-325 [[place] 5/325] 1 - 2 tab PO Q6H PRN PRN 5 Days #10 tab 06/04/19 The following prescriptions were given: Dibucaine 1 applic TOPICAL PRN PRN #2 tube PRN Reason: Anal/Rectal Irritations Prescription Printed Hydrocodone Bitart/Apap 5-325 [[place] 5/325] 1 - 2 tab PO Q6H PRN PRN 5 Days #10 tab PRN Reason: Pain Score 1-11/22 Prescription Printed Primary Care Physician: Jagdish Venegas MD [Primary Care Provider] - Test Results: Test results from this visit will be discussed in further detail at your follow- up appointment, if applicable. Please Follow Up With: David Ayoub MD - [phone] When: 1-2 weeks
[2019-06-04 08:13] VITALS: BP 133/85; BP 135/83; PULSE 74; RESP 16; TEMP 36.2; O2SAT 96
[2019-06-04 08:30] VITALS: BP 126/84; BP 135/83; PULSE 72; RESP 16; O2SAT 96
[2019-06-04 08:43] VITALS: BP 133/86; BP 135/83; PULSE 73; RESP 16; TEMP 36.3; O2SAT 96
[2019-06-04] MEDS: HYDROcodone Bitartrate/Apap 5/325 Tablet PO (09:37)
[2019-06-04 10:24] VITALS: BP 135/83; BP 137/88; PULSE 72; RESP 16; TEMP 36.5; O2SAT 99
--- NOTE | 2019-06-04 12:29 | OP.COLON_ITS ---
Patient Name: Baron Roque Procedure Date: 06/04/2019 6:16 AM Date of : 1970 Age: 48 Procedure: Colonoscopy Indications: Screening for colorectal malignant neoplasm Providers: David Ayoub MD Referring MD: David Ayoub MD Medicines: General Anesthesia Patient Profile: This is a 48 year old male. Refer to note in patient chart for documentation of history and physical. Last Colonoscopy: none. The patient's first colonoscopy is today. Complications: No immediate complications. Procedure: Pre-Anesthesia Assessment: - Prior to the procedure, a History and Physical was performed, and patient medications and allergies were reviewed. The patient is competent. The risks and benefits of the procedure and the sedation options and risks were discussed with the patient. All questions were answered and informed consent was obtained. Patient identification and proposed procedure were verified by the physician, the nurse, the anesthesiologist and the financial administrative assistant in the procedure room. Mental Status Examination: alert and oriented. Airway Examination: normal oropharyngeal airway and neck mobility. Respiratory Examination: clear to auscultation. CV Examination: normal. Prophylactic Antibiotics: The patient does not require prophylactic antibiotics. Prior Anticoagulants: The patient has taken no previous anticoagulant or antiplatelet agents. ASA Grade Assessment: II - A patient with mild systemic disease. After reviewing the risks and benefits, the patient was deemed in satisfactory condition to undergo the procedure. The anesthesia plan was to use general anesthesia. Immediately prior to administration of medications, the patient was re-assessed for adequacy to receive sedatives. The heart rate, respiratory rate, oxygen saturations, blood pressure, adequacy of pulmonary ventilation, and response to care were monitored throughout the procedure. The physical status of the patient was re-assessed after the procedure. After I obtained informed consent, the scope was passed under direct vision. Throughout the procedure, the patient's blood pressure, pulse, and oxygen saturations were monitored continuously. The Colonoscope was introduced through the anus and advanced to the cecum, identified by appendiceal orifice and ileocecal valve. The colonoscopy was performed without difficulty. The patient tolerated the procedure well. The quality of the bowel preparation was good. Scope In: 7:02:05 AM Scope Withdrawal Time 0 hours 12 minutes 10 seconds Scope Out: 7:16:45 AM Total Procedure Duration Time 0 hours 14 minutes 40 seconds Findings: The perianal exam findings include anal condyloma. Three small mucosal nodules were found at the anus. Biopsies were taken with a cold forceps for histology. The exam was otherwise normal throughout the examined colon. Impression: - Anal condyloma found on perianal exam. - Mucosal nodule at the anus. Biopsied. Recommendation: - Discharge patient to home. - Resume previous diet. - Continue present medications. - Await pathology results. - Return to my office in 2 weeks. - Repeat colonoscopy in 10 years for screening purposes. Procedure Code(s): --- Professional --- 11338, Colonoscopy, flexible; with biopsy, single or multiple CPT copyright 2017 [employer]. All rights reserved. The codes documented in this report are preliminary and upon photographers' model review may be revised to meet current compliance requirements. David Ayoub MD 06/04/2019 12:28:34 PM This report has been signed electronically. Number of Addenda: 0 Note Initiated On: 06/04/2019 6:16 AM
--- NOTE | 2019-06-10 12:26 | HP.PCM_ITS ---
History of Present Illness Date of Admission: 06/04/19 Chief Complaint: Condylomas The patient is a 48 year old male with multiple condylomas presents for destruction condylomas today Past Medical History Allergies No Known Allergies Allergy (Verified 06/04/19 05:53) Home Medications: Ambulatory Orders Medication Instructions Recorded Ascorbic Acid [Vitamin C] 500 mg PO DAILY 04/03/16 Cholecalciferol (Vitamin D3) 5,000 unit PO DAILY 04/03/16 [Vitamin D3] Cyanocobalamin (Vitamin B-12) 5,000 mcg PO DAILY 04/03/16 [Vitamin B-12] Levothyroxine [Synthroid] 88 mcg PO DAILY 04/03/16 Magnesium 500 mg PO DAILY 04/03/16 Multivitamin 1 tab PO DAILY 04/03/16 Bupropion HCl [Bupropion Xl] 300 mg PO DAILY 09/16/18 Escitalopram Oxalate [Lexapro] 10 mg PO DAILY 09/16/18 Naproxen Sodium [Aleve] 220 mg PO PRN PRN 09/16/18 Dibucaine 1 applic TOPICAL PRN PRN #2 tube 06/04/19 Hydrocodone Bitart/Apap 5-325 1 - 2 tab PO Q6H PRN PRN 5 Days 06/04/19 [[place] 5/325] #10 tab Smoking Status: Never smoker Tobacco Use: Non-smoker VTE Information - Inpt Only VTE Present on Admission: No VTE Mechan Device Prophylaxis: SCD's - Physical Exam Vitals/I&O's: Vital Signs Temp Pulse Resp BP Pulse Ox 97.7 F L 72 16 137/88 H 99 06/04/19 10:24 06/04/19 10:24 06/04/19 10:24 06/04/19 10:24 06/04/19 10:24 Oxygen Delivery Method Room Air Weight: 110.1 kg Body Mass Index (BMI) 30.3 General: Alert, Oriented x3 HEENT: Atraumatic, PERRLA Oral: Moist Mucosa Neck: Supple Assessment/Plan Plan for destruction of condylomas.
== END 2019-06-04 10:26 | disposition home or self-care (01) ==
LOC: EN 05:30 → AC 05:31
PROVIDERS: Anesthesiology; Urology; Family Provider Family Medicine; PCP Family Medicine; Referring Provider Surgery; Visit Provider Surgery
PROC: 0DJD8ZZ Inspection of Lower Intestinal Tract, Via Natural or Artificial Opening Endoscopic (ICD-10-PCS; CPT 45378; principal; 2019-06-04 06:25)
PROC: (CPT 17110; principal; 2019-06-04 07:00)
PROC: (CPT 54057; 2019-06-04 07:00)
DX: Z12.11 Encounter for screening for malignant neoplasm of colon (principal); A63.0 Anogenital (venereal) warts; I10 Essential (primary) hypertension; E03.9 Hypothyroidism, unspecified; F32.9 Major depressive disorder, single episode, unspecified; F41.9 Anxiety disorder, unspecified; Z79.899 Other long term (current) drug therapy; Z96.651 Presence of right artificial knee joint
CPT/HCPCS: 00920; 17110; 45380; 54057; 36415; 84443; 88305; 93005; J7120; J2405

== ENCOUNTER → 2019-07-22 16:28 | Outpatient (CLI) | payer BC, SELFPAY ==
[2019-07-22 18:23] LABS: T4 Free Direct 1.12 ng/dL (0.76-1.46)
== END ==
PROVIDERS: Family Provider Family Medicine; PCP Family Medicine; Referring Provider Family Medicine; Visit Provider Family Medicine
DX: E03.9 Hypothyroidism, unspecified (principal)
CPT/HCPCS: 36415; 84439; 84443

== ENCOUNTER → 2019-11-20 15:53 | Outpatient (CLI) | payer BC, SELFPAY ==
[2019-11-20 17:42] LABS: Absolute Lymphocyte Count 2.43 X10^3/uL (0.83-4.51); Absolute Neutrophil Count 4.3 X10^3/uL (2.0-7.7); Basophil# 0.04 X10^3/uL; Basophil% 0.5 % (0-1); Eosinophil# 0.09 X10^3/uL; Eosinophils% 1.2 % (0-5); Hematocrit 44.3 % (40-54); Hemoglobin 14.8 g/dL (13.0-16.5); Lymphocyte # 2.43 X10^3/ul (4.0); Lymphocyte % 32.4 % (19-41); Mean Corp Hgb Conc 33.4 g/dL (32-36); Mean Corpuscular Volume 89.7 fL (80-94); Mean Platelet Vol. 11.1 fl (6.2-12.0); NRBC Flagged by Analyzer 0 % (0-5); Neutrophil # 4.33 X10^3/uL (2.7-7.7); Neutrophil % 57.6 % (47-70); Platelet Count 198 K/mm3 (150-450); RBC Distribution Width CV 12.5 % (11.6-14.6); RBC Distribution Width SD 40.8 fl (35.1-43.9); Red Blood Count 4.94 M/mm3 (4.6-6.2); White Blood Count 7.5 K/mm3 (4.4-11.0)
[2019-11-20 18:18] LABS: AST(SGOT) 25 U/L (15-37); Alanine Aminotransfer ALT/SGPT 45 U/L (16-61); Alkaline Phosphatase 92 U/L (45-117); Anion Gap 6 (5-15); BUN 20 mg/dL (7-18); BUN/Creat Ratio 15.5 RATIO (10-20); Calcium,Total 8.7 mg/dL (8.5-10.1); Chloride 104 mmol/L (98-107); Creatinine, Serum 1.29 mg/dL (0.70-1.30); EST Glomerular Filtration Rate 63 mL/min (>60); Est Glom Filt Rate - Afr Amer 77 mL/min (>60); Globulin 3.9 g/dL (2.2-4.2); Glucose 90 mg/dL (74-106); Potassium 3.7 mmol/L (3.5-5.1); Protein, Total 7.9 g/dL (6.4-8.2); Sodium Level 135 mmol/L (136-145)
== END ==
PROVIDERS: PCP Family Medicine; Referring Provider Family Medicine; Visit Provider Family Medicine
DX: R68.89 Other general symptoms and signs (principal)
CPT/HCPCS: 36415; 80053; 85025

== ENCOUNTER → 2020-08-25 10:16 | Outpatient (CLI) | payer OTHER, SELFPAY ==
[2020-08-25 13:12] LABS: Anion Gap 4 (5-15); BUN 17 mg/dL (7-18); BUN/Creat Ratio 13.7 RATIO (10-20); Calcium,Total 9.2 mg/dL (8.5-10.1); Chloride 104 mmol/L (98-107); Cholesterol 186 mg/dL (200); Creatinine, Serum 1.24 mg/dL (0.70-1.30); EST Glomerular Filtration Rate 66 mL/min (>60); Est Glom Filt Rate - Afr Amer 80 mL/min (>60); Glucose 101 mg/dL (74-106); High Density Lipoprotein 42 mg/dL; PSA,Total - Annual Screen 2.97 ng/mL (0.00-4.00); Sodium Level 135 mmol/L (136-145); Triglycerides 340 mg/dL; Very Low Density Lipoprotein 68 mg/dL (5-40)
== END ==
PROVIDERS: PCP Family Medicine; Referring Provider Family Medicine; Visit Provider Family Medicine
DX: E03.9 Hypothyroidism, unspecified (principal); N52.9 Male erectile dysfunction, unspecified; Z13.220 Encounter for screening for lipoid disorders; Z13.1 Encounter for screening for diabetes mellitus
CPT/HCPCS: 36415; 80048; 80061; 84153; 84443; G0103

== ENCOUNTER → 2021-12-10 | Outpatient (CLI) | payer OTHER, SELFPAY ==
[2021-12-10 10:54] LABS: Anion Gap 5 (5-15); BUN 20 mg/dL (7-18); BUN/Creat Ratio 17.5 RATIO (10-20); Calcium,Total 8.6 mg/dL (8.5-10.1); Chloride 107 mmol/L (98-107); Cholesterol 202 mg/dL (200); Creatinine, Serum 1.14 mg/dL (0.70-1.30); EST Glomerular Filtration Rate 73 mL/min (>60); Est Glom Filt Rate - Afr Amer 88 mL/min (>60); Glucose 108 mg/dL (74-106); High Density Lipoprotein 50 mg/dL; Potassium 4.1 mmol/L (3.5-5.1); Sodium Level 138 mmol/L (136-145); Thyroid Stim Hormone (TSH) 1.87 uIU/mL (0.358-3.74); Triglycerides 179 mg/dL; Very Low Density Lipoprotein 36 mg/dL (5-40)
== END | disposition home or self-care (01) ==
PROVIDERS: PCP Family Medicine; Referring Provider Family Medicine; Visit Provider Family Medicine
DX: Z00.00 Encounter for general adult medical examination without abnormal findings (principal); E03.9 Hypothyroidism, unspecified
CPT/HCPCS: 36415; 80048; 80061; 84443

== ENCOUNTER → 2022-12-04 | Outpatient (CLI) | payer BC, SELFPAY ==
[2022-12-04 10:32] LABS: Anion Gap 5 (5-15); BUN 17 mg/dL (7-18); Calcium,Total 8.6 mg/dL (8.5-10.1); Chloride 108 mmol/L (98-107); Cholesterol 171 mg/dL (200); Creatinine, Serum 1.21 mg/dL (0.70-1.30); EST Glomerular Filtration Rate 67 mL/min (>60); Est Glom Filt Rate - Afr Amer 82 mL/min (>60); Glucose 102 mg/dL (74-106); High Density Lipoprotein 43 mg/dL; PSA,Total - Annual Screen 4.04 ng/mL (0.00-4.00); Potassium 4.3 mmol/L (3.5-5.1); Sodium Level 141 mmol/L (136-145); T4 Free Direct 1.12 ng/dL (0.76-1.46); Thyroid Stim Hormone (TSH) 1.74 uIU/mL (0.358-3.74); Triglycerides 175 mg/dL; Very Low Density Lipoprotein 35 mg/dL (5-40)
[2022-12-04 10:33] LABS: Vitamin D,25 Hydroxy 48.3 ng/mL
== END | disposition home or self-care (01) ==
PROVIDERS: PCP Family Medicine; Referring Provider Family Medicine; Visit Provider Family Medicine
DX: E03.9 Hypothyroidism, unspecified (principal); E55.9 Vitamin D deficiency, unspecified; Z13.1 Encounter for screening for diabetes mellitus; Z13.220 Encounter for screening for lipoid disorders; Z12.5 Encounter for screening for malignant neoplasm of prostate
CPT/HCPCS: 36415; 80048; 80061; 82306; 84153; 84439; 84443; G0103